=== PATIENT | male | born 1945 | race Caucasian/White ===

== ENCOUNTER 2017-05-24 22:23 | Emergency (ER) | payer MEDICARE ==
[~2017-05-24] VITALS: Ht 177.8 cm; Wt 93.0 kg
== END 2017-05-25 00:25 | disposition home or self-care (01) ==
LOC: ED 22:23
DX: S62.664A Nondisplaced fracture of distal phalanx of right ring finger, initial encounter for closed fracture (principal); S61.411A Laceration without foreign body of right hand, initial encounter; S61.412A Laceration without foreign body of left hand, initial encounter; S80.212A Abrasion, left knee, initial encounter; S80.211A Abrasion, right knee, initial encounter; Z23 Encounter for immunization; Z88.2 Allergy status to sulfonamides; W10.8XXA Fall (on) (from) other stairs and steps, initial encounter; Y93.89 Activity, other specified; Y92.89 Other specified places as the place of occurrence of the external cause; Y99.8 Other external cause status